=== PATIENT | male | born 1965 | race Caucasian/White ===

== ENCOUNTER 2021-05-22 20:14 | Emergency (ER) | payer OTHER, SELFPAY ==
--- NOTE | ~2021-05-22 | CT_ITS ---
EXAMINATION: CTA chest PE protocol DATE: 05/22/2021 22:13 INDICATION: Shortness of breath TECHNIQUE: Computed tomography angiography (CTA) of the chest was performed with 100 mL Omnipaque-350 intravenous contrast timed to evaluate the pulmonary arteries. Coronal maximum intensity projection 3D-reconstructions were created by the technologist. The dose-length product (DLP) was 545.12 mGy-cm. Automated exposure control and iterative reconstruction technique were employed. COMPARISON: None. FINDINGS: The pulmonary arteries are well-opacified. No pulmonary embolism is identified. There are w idespread groundglass opacities throughout all lung zones. There is no pleural effusion or pneumothor ax. Mild mediastinal and hilar lymphadenopathy are noted, likely reactive. The heart size is normal. There is mild thoracic spondylosis. IMPRESSION: 1. No pulmonary embolus. 2. Widespread groundglass opacities throughout all lung zones, likely COVID 19 pneumonia. Reviewed, dictated and finalized at location A.
[2021-05-22 20:22] VITALS: BP 131/78; PULSE 109; RESP 22; TEMP 36.6; O2SAT 98
--- NOTE | 2021-05-22 20:42 | ECG_ITS ---
Measurements Intervals [place] Rate: 116 P: 0 WA: 161 QRS: 35 QRSD: 95 T: 6 QT: 347 QTc: 483 Interpretive Statements SINUS TACHYCARDIA DELAYED PRECORDIAL R/S TRANSITION BASELINE ARTIFACT- I, III, AVL ABNORMAL ECG Electronically Signed On 05-23-2021 6:01:12 CDT by Olegario Arce D.O.
[2021-05-22 20:52] VITALS: PULSE 107; RESP 16
[2021-05-22] MEDS: IPRATROPIUM BR 0.02% INH SOLN 0.5 MG/2.5 ML VIAL INHALATION (20:53)
[2021-05-22] MEDS: ALBUTEROL SULFATE NEB 2.5 MG/0.5 ML INH 5 MG INHALATION (20:53)
[2021-05-22 20:59] VITALS: PULSE 110; RESP 16
[2021-05-22] MEDS: DEXAMETHASONE SOD PHOS INJ 4 MG/ML VIAL 10 MG IV PUSH (21:01)
--- NOTE | 2021-05-22 21:07 | ED.URI ---
HPI - URI/Sore Throat General Chief Complaint: Upper Respiratory Infection Stated Complaint: Covid +, difficulty breathing Time Seen by Provider: 05/22/21 20:42 Source: patient Mode of arrival: ambulatory Limitations: no limitations History of Present Illness HPI Narrative: Patient is a 56-year-old male complaining of shortness of breath, cough, body aches, fatigue after being diagnosed with Covid approximately 3 weeks ago. Patient states he is here because he is not any better. Patient was seen last week at another ER and was told that he has mild pneumonia was given a Z-Carlos and discharged home. Patient states that he is not vaccinated. Patient denies chest pain, abdominal pain, nausea, vomiting, diarrhea, fever or chills Related Data Allergies Allergy/AdvReac Type Severity Reaction Status Date / Time No Known Allergies Allergy Verified 05/22/21 21:02 Review of Systems Review of Systems: All systems reviewed & are unremarkable except as noted in HPI and below Constitutional: Constitutional: Denies chills, Denies excessive sweating, Denies fever(s), Denies headache(s), Denies lethargy, Denies weakness and Denies weight loss Eyes: Eyes: Denies blurry vision, Denies change in vision and Denies loss of vision ENT: Denies dizziness, Denies ear discharge, Denies headache(s), Denies lip swelling, Denies epistaxis, Denies nasal congestion, Denies neck pain, Denies throat swelling and Denies tongue swelling Cardiovascular: Cardiovascular: Denies chest pain, Denies chest pain at rest, Denies chest pain with activity, Denies diaphoresis, Denies rapid heart rate, Denies edema, Denies irregular heart rhythm, Denies lightheadedness and Denies palpitations Respiratory: Respiratory: Denies chest congestion and Denies hemoptysis Gastrointestinal: Gastrointestinal: Denies abdominal pain, Denies melena, Denies hematochezia, Denies diarrhea, Denies nausea, Denies vomiting and Denies hematemesis Musculoskeletal: Musculoskeletal: Denies abnormal gait, Denies deformity, Denies joint swelling, Denies limited range of motion, Denies neck pain and Denies numbness Neurologic: Denies Abnormal speech present, Denies abnormal gait, Denies confusion, Denies dizziness, Denies headache(s), Denies focal weakness, Denies loss of vision, Denies numbness, Denies Other visual disturbances, Denies Sensory deficit (Neuro) and Denies weakness Psychiatric: Psychiatric: Denies confusion, Denies depression, Denies auditory hallucinations, Denies homicidal ideation and Denies suicidal ideation Endocrine: Endocrine: Denies cold intolerance, Denies excessive sweating, Denies fatigue, Denies heat intolerance and Denies palpitations Hematologic/Lymphatic: Hematologic/Lymphatic: Denies easy bleeding and Denies easy bruising Allergic/Immunologic: Allergic/Immunologic: Denies lip swelling, Denies throat swelling and Denies tongue swelling PMFSH Comments Past medical history: Hypertension, hyperlipidemia, diabetes Family history: Hypertension Social history non-smoker no EtOH or drug use Exam Const: General: cooperative, healthy appearing, comfortable, no acute distress, well developed, alert and awake; No confusion Orientation/consciousness: oriented to person, oriented to place, oriented to time, patient oriented x3 and No confusion Limitations: no limitations HENMT: Head: normal to inspection, normocephalic and atraumatic Ears: hearing grossly normal bilaterally, TM normal on the right and TM normal on the left General nose exam: Normal external nose present, Normal nares present and No nasal discharge present Face and sinus: normal facial exam Mouth: Yes Normal oral and palatal mucosa present, Yes lip normal, Yes tongue normal and Yes oropharynx normal Throat: posterior oropharynx normal, tonsils normal and uvula midline Eyes: General: appearance normal, both eyes and all related structures Pupils: Equal, round and reactive pupils present EOM: EOMs intact bilaterally Ne
[2021-05-22 21:14] LABS: Basophils Percent Auto 0.4 % (0.2-1.2); Eosinophils Absolute Auto 0.1 K/mm3 (0-0.3); Eosinophils Percent Auto 1.2 % (0-4.4); Hematocrit 40.2 % (42.0-52.0); Hemoglobin 13.8 g/dL (14.0-18.0); Immature Granulocyte Absolute 0.02 K/mm3 (0.00-0.031); Immature Granulocyte Percent A 0.4 % (0-0.5); Lymphocytes Absolute Auto 0.85 K/mm3 (0.9-3.2); Lymphocytes Percent Auto 16.7 % (18.3-44.2); Mean Corpuscular HGB Conc 34.3 g/dl (32-36); Mean Corpuscular Hemoglobin 29.7 pg (26-34); Mean Corpuscular Volume 86.5 fl (80-100); Mean Platelet Volume 9.5 fl (7.4-10.4); Monocytes Absolute Auto 0.4 K/mm3 (0.1-0.6); Monocytes Percent Auto 7.9 % (2.6-8.5); Neutrophils Absolute Auto 3.7 K/mm3 (1.3-6.7); Neutrophils Percent Auto 73.4 % (45.5-73.1); Platelet Count Result 229 k/mm3 (150-375); Red Blood Count 4.65 M/mm3 (4.6-6.20); Red Cell Distribution Width 12.8 % (11.5-14.5); White Blood Count 5.1 K/mm3 (4.5-10.0)
[2021-05-22 21:30] LABS: Lactic Acid Reflex 2.2 mmol/L (0.7-2.1)
[2021-05-22 21:31] LABS: Alanine Aminotransferase 28 U/L (4-50); Albumin Level 3.9 g/dL (3.5-5.1); Alkaline Phosphatase 77 U/L (38-126); Anion Gap 12 mmol/L (8-16); Aspartate Amino Transferase 33 U/L (17-59); Bilirubin,Total 1.1 mg/dL (0.2-1.3); Blood Urea Nitrogen 10 mg/dL (9-20); Calcium 8.5 mg/dL (8.4-10.2); Carbon Dioxide 21 mmol/L (22-30); Chloride 100 mmol/L (98-107); Estimated CRCL calculation 111 ml/min; Estimated Glomerular Filt Rate > 60; Glucose 125 mg/dL (65-110); Potassium 3.4 mmol/L (3.4-5.0); Sodium 133 mmol/L (137-145)
[2021-05-22 21:32] LABS: INR 1.1; Prothrombin Time 13.9 Seconds (11.1-14.7)
[2021-05-22 21:49] LABS: Troponin I < 0.012 ng/mL (0.000-0.034)
[2021-05-22 22:06] LABS: Large Platelets Present; Platelet Estimate Adequate (Adequate); Poikilocytosis 1+ (NORMAL); Tear Drop Cells 1+ (NORMAL)
[2021-05-22 22:24] LABS: Partial Thromboplastin Time 34.1 SECONDS (22.3-36.8)
[2021-05-22 22:27] LABS: D Dimer 1.36 ug/mL (<0.48)
[2021-05-22 23:22] VITALS: BP 130/76; PULSE 100; RESP 18; O2SAT 94
--- NOTE | 2021-05-22 23:22 | PC.NURSE ---
Pts o2 stats are 94 percent while ambulating. dr neri.
[2021-05-23 00:08] LABS: Reflex Lactic Acid Yes or No Add Lactic
== END 2021-05-22 23:46 | disposition home or self-care (01) ==
PROVIDERS: Emergency Provider Emergency Medicine; PCP Emergency Medicine
DX: U07.1 COVID-19 (principal); J12.82 Pneumonia due to coronavirus disease 2019; I10 Essential (primary) hypertension; E11.9 Type 2 diabetes mellitus without complications; E78.5 Hyperlipidemia, unspecified
CPT/HCPCS: 36415; 71275; 80053; 83605; 84484; 85025; 85380; 85610; 85730; 93005; 94640; 96374; 99284; J1100; Q9967

== ENCOUNTER 2021-06-02 13:52 | Outpatient (CLI) | payer OTHER, SELFPAY ==
--- NOTE | ~2021-06-02 | XR_ITS ---
EXAMINATION: XR chest 2V DATE: 06/02/2021 14:13 INDICATION: Shortness of breath, pneumonia follow-up TECHNIQUE: PA and lateral views of the chest are obtained. COMPARISON: CT, 05/22/2021 FINDINGS: There are persistent airspace opacities of the lung bases and right midlung zone. Right-liz ed opacities demonstrate interval worsening in the mid and lower lung zones. Previously seen right up per lung zones opacities have improved. There is no pleural effusion or pneumothorax. The cardiomedia stinal silhouette is normal. There is mild thoracic spondylosis. IMPRESSION: 1. Persistent bilateral airspace opacities with interval worsening in the right mid and lower lung zo alice, consistent with worsening pneumonia. Reviewed, dictated and finalized at location B. IMPRESSION: 1. Persistent bilateral airspace opacities with interval worsening in the right mid and lower lung zones, consistent with worsening pneumonia.
== END 2021-06-02 13:53 | disposition home or self-care (01) ==
LOC: ANHIMG 14:01
PROVIDERS: PCP Emergency Medicine; Visit Provider Emergency Medicine
DX: J12.9 Viral pneumonia, unspecified (principal)
CPT/HCPCS: 71046